=== PATIENT | male | born 1975 | race Two or more races ===

== ENCOUNTER 2018-09-21 11:12 | Emergency (ER) | payer MEDICAID, OTHER ==
--- NOTE | 2018-09-21 11:45 | EDM.PDOCBH ---
ED HPI GENERAL MEDICAL PROBLEM - General Chief Complaint: Behavioral/Psych Stated Complaint: MEDICAL CLEARANCE FOR [facility] Time Seen by Provider: 09/21/18 11:30 Source of Information: Reports: Patient, Other (Mack with [facility]) History Limitations: Reports: No Limitations - History of Present Illness INITIAL COMMENTS - FREE TEXT/NARRATIVE: Patient is a 42 year old male who presents to the E.D. with Mack Farnsworth ( [facility]) to obtain medical clearance. Patient had take 15x 25mg tabs of hydroxyzine at 7 a.m. since he was feeling anxious. States he has a history of seizures and has been taking dilantin up until [address] Steven changed to topiramate and levetiracetam. Patient states he is addicted to alcohol. Patient states March 2018 he was [facility] serving a 10 year sentence. He was discharged to [facility] for work release. He recently was released from the [facility] August 28 of this year. Patient's currently been staying at the [facility] drinking alcohol daily. States he consumes approximate 4 x 1/2 gallons of rum and Coke every week. In addition he's been abusing his antiseizure medications Dilantin. He takes quadruple the dose to get a two-day high. This morning took the hydroxyzine because he was feeling anxious. This also, calms his temper. He's being seen Dr. Steven at [facility]. Patient went to [facility] today for medical evaluation. Patient's wants treatment for his psych issues and addiction. Patient has a history of bipolar, manic depression, ADHD, PTSD, explosive temper, seizures, and tremors. Patient last consumed alcohol 2 days ago. Last used Dilantin one week ago. He denies any hallucinations, homicidal or suicidal ideations, taking of any recreational drugs, or any additional complaints. - Related Data Allergies Allergy/AdvReac Type Severity Reaction Status Date / Time No Known Allergies Allergy Verified 07/03/18 15:26 Home Meds: Home Meds Phenytoin 400 mg PO BEDTIME 09/21/18 [History] Phenytoin Sodium Extended [Dilantin] 200 mg PO WITHBREAKFAST 09/21/18 [History] Phenytoin Sodium Extended [Dilantin] 300 mg PO PCDINNER 09/21/18 [History] Propranolol [Inderal] 40 mg PO DAILY 09/21/18 [History] Topiramate 50 mg PO ASDIRECTED 09/21/18 [History] hydrOXYzine pamoate [Hydroxyzine Pamoate] 75 mg PO BEDTIME 09/21/18 [History] levETIRAcetam [Keppra] 500 mg PO ASDIRECTED 09/21/18 [History] Past Medical History HEENT History: Reports: Other (See Below) Other HEENT History: iritis. Respiratory History: Reports: Bronchitis, Recurrent, Pneumonia, Recurrent Genitourinary History: Reports: STD Musculoskeletal History: Reports: Arthritis Neurological History: Reports: Seizure Psychiatric History: Reports: Addiction Dermatologic History: Reports: Seborrheic Dermatitis - Infectious Disease History Infectious Disease History: Reports: Other (See Below) Other Infectious Disease History: STD - Past Surgical History HEENT Surgical History: Reports: Tonsillectomy Social & Family History - Tobacco Use Smoking Status *Q: Current Status Unknown - Caffeine Use Caffeine Use: Reports: Coffee - Alcohol Use Days Per Week of Alcohol Use: 6 Number of Drinks Per Day: 1 Total Drinks Per Week: 6 - Recreational Drug Use Recreational Drug Use: Yes Drug Use in Last 12 Months: Yes Recreational Drug Type: Reports: Other (see below) Other Recreational Drug Type: suboxone ED ROS GENERAL - Review of Systems Review Of Systems: ROS reveals no pertinent complaints other than HPI. ED EXAM, BEHAVIORAL HEALTH - Physical Exam Exam: See Below Exam Limited By: No Limitations General Appearance: Alert, WD/WN, No Apparent Distress Eye Exam: Bilateral Eye: EOMI, Normal Inspection, Nystagmus (none noted. ), PERRL, Vision Changes (none noted. ) Ears: Hearing Grossly Normal Nose: Normal Inspection Throat/Mouth: Normal Inspection, Normal Oropharynx, Normal Voice, No Airway Compromise Head: Atraumatic, Normocephalic Neck: Normal Inspection, Supple Respiratory/Chest: No Respiratory Distress, Lungs Clear, Normal Breath Sounds, No Accessory Muscle Use Cardiovascular: Normal Peripheral Pulses, Regular Rate, Rhythm, No Murmur GI/Abdominal: Normal Bowel Sounds, Soft, Non-Tender, No Organomegaly, No Distention Back Exam: Normal Inspection Extremities: Normal Inspection Neurological: Alert, Normal Mood/Affect, CN II-XII Intact, Normal Cognition, No Motor/Sensory Deficits, Oriented x 3 Psychiatric: Alert, Normal Affect, Normal Cognition, Normal Mood, Oriented Skin Exam: Warm, Dry, Intact, Normal color, No rash COURSE, BEHAVIORAL HEALTH COMP - Course Vital Signs: Last Vital Signs Temp 97.8 F 09/21/18 11:23 Pulse 65 09/21/18 11:23 Resp 19 09/21/18 11:23 BP 118/72 09/21/18 11:23 Pulse Ox 100 09/21/18 11:23 Orders, Labs, Meds: Active Orders 24 hr Category Date Time Status EKG Documentation Completion [RC] ASDIRECTED Care 09/21/18 13:43 Active BARBITURATES (GCMS) Stat Lab 09/21/18 12:30 Received EKG 12 Lead [EK] Stat Ther 09/21/18 13:43 Ordered Laboratory Tests 09/21/18 09/21/18 09/21/18 Range/Units 11:55 11:55 11:55 WBC 7.77 (4.23-9.07) K/mm3 RBC 5.32 (4.63-6.08) M/mm3 Hgb 16.3 (13.7-17.5) gm/L Hct 48.9 (40.1-51.0) % MCV 91.9 (79.0-92.2) fl MCH 30.6 (25.7-32.2) pg MCHC 33.3 (32.2-35.5) g/dl RDW Std Deviation 46.9 H (35.1-43.9) fL Plt Count 357 H (163-337) K/mm3 MPV 8.8 L (9.4-12.3) fl Neutrophils % (Manual) 65 H (40-60) % Band Neutrophils % 0 (0-10) % Lymphocytes % (Manual) 29 (20-40) % Atypical Lymphs % 0 % Monocytes % (Manual) 6 (2-10) % Eosinophils % (Manual) 0 L (0.8-7.0) % Basophils % (Manual) 0 L (0.2-1.2) Platelet Estimate Adequate RBC Morph Comment Normal Sodium 139 (136-145) mEq/L Potassium 4.3 (3.5-5.1) mEq/L Chloride 104 (98-107) mEq/L Carbon Dioxide 27 (21-32) mEq/L Anion Gap 12.3 (5-15) BUN 17 (7-18) mg/dL Creatinine 1.0 (0.7-1.3) mg/dL Est Cr Clr Drug Dosing 95.25 mL/min Estimated GFR (MDRD) > 60 (>60) mL/min BUN/Creatinine Ratio 17.0 (14-18) Glucose 104 (74-106) mg/dL Calcium 9.2 (8.5-10.1) mg/dL Total Bilirubin 0.3 (0.2-1.0) mg/dL AST 24 (15-37) U/L ALT 37 (16-63) U/L Alkaline Phosphatase 74 (46-116) U/L Total Protein 7.9 (6.4-8.2) g/dl Albumin 3.8 (3.4-5.0) g/dl Globulin 4.1 gm/dL Albumin/Globulin Ratio 0.9 L (1-2) TSH 3rd Generation 2.328 (0.358-3.74) uIU/mL Salicylates 2.6 L (2.8-20) mg/dL Urine Opiates Screen (QUWSRD=386) Ur Buprenorphine Scrn (CUTOFF=10) Ur Oxycodone Screen (RIK8WM=987) Urine Methadone Screen (YYW8DY=731) Ur Propoxyphene Screen (PFJQKS=197) Acetaminophen 0 L (10-30) ug/mL Ur Barbiturates Screen (EUTPOV=591) Phenytoin 0.7 L (10.0-20.0) ug/mL Ur Tricyclics Screen (DGIBIN=509) Ur Phencyclidine Scrn (CUTOFF=25) Ur Amphetamine Screen (VNODYO=257) U Methamphetamines Scrn (KXDUIS=560) U Benzodiazepines Scrn (YXUVFX=335) U Cocaine Metab Screen (GIZOXZ=109) U Marijuana (THC) Screen (CUTOFF=50) Ethyl Alcohol 0.00 (0.00) gm% 09/21/18 Range/Units 12:30 WBC (4.23-9.07) K/mm3 RBC (4.63-6.08) M/mm3 Hgb (13.7-17.5) gm/L Hct (40.1-51.0) % MCV (79.0-92.2) fl MCH (25.7-32.2) pg MCHC (32.2-35.5) g/dl RDW Std Deviation (35.1-43.9) fL Plt Count (163-337) K/mm3 MPV (9.4-12.3) fl Neutrophils % (Manual) (40-60) % Band Neutrophils % (0-10) % Lymphocytes % (Manual) (20-40) % Atypical Lymphs % % Monocytes % (Manual) (2-10) % Eosinophils % (Manual) (0.8-7.0) % Basophils % (Manual) (0.2-1.2) Platelet Estimate RBC Morph Comment Sodium (136-145) mEq/L Potassium (3.5-5.1) mEq/L Chloride (98-107) mEq/L Carbon Dioxide (21-32) mEq/L Anion Gap (5-15) BUN (7-18) mg/dL Creatinine (0.7-1.3) mg/dL Est Cr Clr Drug Dosing mL/min Estimated GFR (MDRD) (>60) mL/min BUN/Creatinine Ratio (14-18) Glucose (74-106) mg/dL Calcium (8.5-10.1) mg/dL Total Bilirubin (0.2-1.0) mg/dL AST (15-37) U/L ALT (16-63) U/L Alkaline Phosphatase (46-116) U/L Total Protein (6.4-8.2) g/dl Albumin (3.4-5.0) g/dl Globulin gm/dL Albumin/Globulin Ratio (1-2) TSH 3rd Generation (0.358-3.74) uIU/mL Salicylates (2.8-20) mg/dL Urine Opiates Screen Negative (XRZCAT=033) Ur Buprenorphine Scrn Negative (CUTOFF=10) Ur Oxycodone Screen Negative (MWU9GH=445) Urine Methadone Screen Negative (AET7XI=721) Ur Propoxyphene Screen Negative (BXVDCE=287) Acetaminophen (10-30) ug/mL Ur Barbiturates Screen Presumptive positive H (IWUJXO=209) Phenytoin (10.0-20.0) ug/mL Ur Tricyclics Screen Negative (VZFAJY=817) Ur Phencyclidine Scrn Negative (CUTOFF=25) Ur Amphetamine Screen Negative (PTOFXL=936) U Methamphetamines Scrn Negative (LFRSSB=384) U Benzodiazepines Scrn Negative (WQRMHU=686) U Cocaine Metab Screen Negative (ICJNZZ=169) U Marijuana (THC) Screen Negative (CUTOFF=50) Ethyl Alcohol (0.00) gm% Re-Assessment/Re-Exam: Labs reviewed: White blood cell count 7.77, hemoglobin normal, platelet count 357, chemistry panel essentially normal, TSH normal, salicylates 2.6, acetaminophen 0, Dilantin 0.7, barbiturates positive, otherwise urine drug tox is negative, serum EtOH 0.00. Dilantin can give false positive for barbiturates. EKG: Sinus rhythm at a rate 86 with normal PE are and QTc. No acute ST changes noted. 1341 Current medication list has been provided and updated. Patient is on topiramate, hydroxyzine, levetiracetam, propranolol. 1341 I have spoken with Poison Control agrees patient can be medically cleared. Peak onset of hydroxyzine has passed should have no issues from here on out. 1349 I have spoken with Asya with [facility]. Patient will be discharged to [facility]. Mack will give ride. Return precautions discussed with patient. Patient had no questions or concerns. Departure - Departure Time of Disposition: 13:43 Disposition: Home, Self-Care 01 Condition: Good Clinical Impression: Patient's other noncompliance with medication regimen, Alcoholic - Discharge Information Instructions: Alcohol Use Disorder, Chemical Dependency Referrals: PCP,None [Primary Care Provider] - [facility] [Outside] Forms: ED Department Discharge Additional Instructions: Medically cleared to [facility] bed. - My Orders Last 24 Hours: My Active Orders 09/21/18 12:30 BARBITURATES (GCMS) Stat 09/21/18 13:43 EKG Documentation Completion [RC] ASDIRECTED EKG 12 Lead [EK] Stat - Assessment/Plan Last 24 Hours: My Active Orders 09/21/18 12:30 BARBITURATES (GCMS) Stat 09/21/18 13:43 EKG Documentation Completion [RC] ASDIRECTED EKG 12 Lead [EK] Stat
[2018-09-21 12:39] LABS: ACETAMINOPHEN 0 ug/mL (10-30)
== END 2018-09-21 13:59 | disposition home or self-care (01) ==
LOC: JD.ED 11:12
DX: F10.20 Alcohol dependence, uncomplicated (principal); Z91.14 Patient's other noncompliance with medication regimen; Z79.899 Other long term (current) drug therapy
CPT/HCPCS: 36415; 80053; 80185; 80306; 84443; 85007; 85027; 93005; 99283; G0480; 93010